=== PATIENT | male | born 1965 | race Caucasian/White ===

== ENCOUNTER 2017-04-24 12:16 | Day surgery (SDC) | payer BC ==
[~2017-04-24] VITALS: Ht 182.9 cm; Wt 98.0 kg
[~2017-04-24 12:16] MED LIST: BUPIVACAINE/PF 0.25% ONE; EPINEPHRINE 1 MG/ML, 1ML ONE; LIDOCAINE/PF 1%, 30ML ONE
[2017-04-24 12:43] VITALS: BP_SYST 111
[2017-04-24] MEDS ORDERED: LACTATED RINGERS 1,000 ML IV SCH ×2 (12:48→13:35)
[2017-04-24] MEDS ORDERED: MIDAZOLAM 1 MG/ML, 2ML ONE (13:16)
[2017-04-24] MEDS ORDERED: GLYCOPYRROLATE 0.2MG/1ML, 5ML ONE (13:17)
[2017-04-24] MEDS ORDERED: SUCCINYLCHOLINE 20 MG/ML, 10ML ONE (13:17)
[2017-04-24] MEDS ORDERED: PROPOFOL 10 MG/ML, 20ML ONE (13:17)
[2017-04-24] MEDS ORDERED: ONDANSETRON 2MG/ML, 2ML ONE (13:17)
[2017-04-24] MEDS ORDERED: DEXAMETHASONE 4 MG/ML, 1ML ONE (13:17)
[2017-04-24] MEDS ORDERED: CEFAZOLIN 1,000 MG ONE (13:17)
[2017-04-24] MEDS ORDERED: FENTANYL PF 250 MCG/5ML ONE (13:17)
[2017-04-24] MEDS ORDERED: ROCURONIUM 10 MG/ML,10ML ONE (13:17)
[2017-04-24] MEDS ORDERED: NEOSTIGMINE 1 MG/ML, 10ML ONE (13:17)
[2017-04-24] MEDS ORDERED: CHOLESTEROL (13:22)
[2017-04-24] MEDS ORDERED: HYDR-3240 PO (13:22)
[2017-04-24] MEDS ORDERED: NAPR500T PO (13:22)
[2017-04-24] MEDS ORDERED: ASPI-650 PO (13:22)
[2017-04-24] MEDS ORDERED: PLEASE ENTER ALLERGIES MC SCH ×2 (13:30)
[2017-04-24] MEDS ORDERED: PLEASE ENTER HEIGHT AND WEIGHT MC SCH (13:30)
[2017-04-24] MEDS ORDERED: METOPROLOL 1 MG/ML, 5ML ONE (14:01)
[2017-04-24] MEDS ORDERED: CLINDAMYCIN 150 MG/ML, 6ML ONE (14:18)
[2017-04-24] MEDS ORDERED: MEPERIDINE/PF 25MG/0.5ML IVPush PRN (15:00)
[2017-04-24] MEDS ORDERED: PROMETHAZINE 25 MG/ML, 1ML IV PRN (15:00)
[2017-04-24] MEDS ORDERED: HYDROmorphone 1 MG/ML, 1ML IV PRN (15:00)
[2017-04-24] MEDS ORDERED: hydrALAzine 20 MG/ML, 1ML IV PRN (15:00)
[2017-04-24] MEDS ORDERED: OXYcodone 5 MG/5 ML ORAL.SOL UDC PO PRN (15:00)
[2017-04-24] MEDS ORDERED: ALBUTEROL SULFATE 2.5 MG/3 ML NPPB PRN (15:00)
[2017-04-24] MEDS ORDERED: LABETALOL 5MG/ML, 20ML IV PRN (15:00)
[2017-04-24] MEDS ORDERED: ACETAMINOPHEN 325 MG TABLET PO PRN (15:00)
[2017-04-24] MEDS ORDERED: FENTANYL PF 100 MCG/2ML IV PRN (15:00)
== END 2017-04-24 18:15 | disposition home or self-care (01) ==
LOC: OUT 12:16
PROVIDERS: ATTEND Orthopaedic Surgery
DX: S43.432A Superior glenoid labrum lesion of left shoulder, initial encounter (principal); S46.012A Strain of muscle(s) and tendon(s) of the rotator cuff of left shoulder, initial encounter; M75.42 Impingement syndrome of left shoulder; M75.22 Bicipital tendinitis, left shoulder; M65.812 Other synovitis and tenosynovitis, left shoulder; M75.52 Bursitis of left shoulder; I10 Essential (primary) hypertension; E78.5 Hyperlipidemia, unspecified; X58.XXXA Exposure to other specified factors, initial encounter; Y93.89 Activity, other specified; Y92.89 Other specified places as the place of occurrence of the external cause; Y99.2 Volunteer activity
CPT/HCPCS: 23430; 29822; 29826; 29827; C1713; J0171; J0330; J0690; J1100; J2250; J2405; J2704; J2710; J3010; J3490; J7120